=== PATIENT | male | born 1990 | race Caucasian/White ===

== ENCOUNTER 2018-11-28 13:58 | Emergency (ER) | payer OTHER ==
[2018-11-28 14:11] VITALS: BP 117/71
--- NOTE | 2018-11-28 14:48 | UC ---
Asthma HPI - HPI Summary HPI Summary: patient had URI 2 weeks ago and was using albuterol inhaler more, he is running out of med and worried he may still need it. no longer feels sick but does exp. occasional wheezing and cough at night. no fever - History of Current Complaint Chief Complaint: UCAsthma Stated Complaint: ASTHMA Time Seen by Provider: 11/28/18 14:38 Hx Obtained From: Patient Onset/Duration: Gradual Onset Timing: Intermittent Episode Lasting Pain Intensity: 0 Aggravating Factor(s): Exertion, Weather Change Alleviating Factor(s): Rest, Inhalers/Nebulizers Associated Signs and Symptoms: Positive: Negative - Allergy/Home Medications Allergies/Adverse Reactions: Allergies Allergy/AdvReac Type Severity Reaction Status Date / Time cefaclor [From [facility]] Allergy Unknown Verified 11/28/18 14:12 Reaction Details Home Medications: Home Medications Albuterol 2.5MG/3ML (0.083%)* [Ventolin 2.5 MG/3 ML NEB.JANA*] 2 puff 11/28/18 [ History] PMH/Surg Hx/FS Hx/Imm Hx Previously Healthy: Yes Respiratory History: Asthma - Surgical History Surgical History: Yes Surgery Procedure, Year, and Place: left ear issue - Family History Known Family History: Positive: None - Social History Occupation: Employed Full-time Lives: With Family Alcohol Use: Weekly Alcohol Amount: 3x's week Substance Use Type: None Smoking Status (MU): Light Every Day Tobacco Smoker Type: Cigarettes Amount Used/How Often: 1 ppw Length of Time of Smoking/Using Tobacco: 4 years Have You Smoked in the Last Year: Yes Household Exposure Type: Cigarettes Cessation Counseling: Patient Advised to Stop Review of Systems All Other Systems Reviewed And Are Negative: Yes Constitutional: Positive: Negative. Negative: Fever, Chills Respiratory: Positive: Other - asthma Cardiovascular: Positive: Negative Neurological: Positive: Negative. Negative: Headache Psychological: Positive: Negative Is Patient Immunocompromised?: No Physical Exam Triage Information Reviewed: Yes Appearance: Well-Appearing, No Pain Distress, Well-Nourished Vital Signs: Initial Vital Signs Temp 98.9 F 11/28/18 14:07 Pulse 92 11/28/18 14:07 Resp 16 11/28/18 14:07 BP 117/71 11/28/18 14:07 Pulse Ox 98 11/28/18 14:07 ENT Exam: Normal ENT: Positive: Normal ENT inspection, Pharynx normal Respiratory Exam: Normal Respiratory: Positive: Lungs clear. Negative: Wheezing Cardiovascular Exam: Normal Cardiovascular: Positive: RRR Neurological Exam: Normal Psychological Exam: Normal Skin Exam: Normal Asthma Course/Dx - Differential Dx/Diagnosis Differential Diagnosis/HQI/PQRI: Acute Asthma, Bronchitis, Pneumonia, Reactive Airway Disease Provider Diagnosis: Asthma Discharge ED - Sign-Out/Discharge Documenting (check all that apply): Patient Departure All imaging exams completed and their final reports reviewed: No Studies - Discharge Plan Condition: Good Disposition: HOME Prescriptions: Albuterol inh POWDER (NF) [Proair Respiclick] 2 puff INH QID #1 mdi Patient Education Materials: Asthma (ED) Referrals: No Primary Care Phys,NOPCP [Primary Care Provider] - Additional Instructions: use albuterol inhaler as directed drink plenty of fluids return if you experience difficulty breathing - Billing Disposition and Condition Condition: GOOD Disposition: Home
== END 2018-11-28 14:55 | disposition home or self-care (01) ==
LOC: UCEAST 13:58
DX: J45.909 Unspecified asthma, uncomplicated (principal); F17.210 Nicotine dependence, cigarettes, uncomplicated; Z88.1 Allergy status to other antibiotic agents
CPT/HCPCS: 99202; G0463

== ENCOUNTER 2018-12-22 16:02 | Emergency (ER) | payer OTHER ==
[2018-12-22 16:41] VITALS: BP 110/66
--- NOTE | 2018-12-22 18:01 | UC ---
Respiratory Complaint HPI - HPI Summary HPI Summary: 28 year old male with h/o asthma since child presents with need for refill of his albuterol inhaler. States on good days he takes this 5-10 times, about 4- 5 times a night and more on other days. Was on maintenance dose years ago, but due to no insurance was unable to fill. No complaints currenltly. has appt with new provider in 02/2019, states that was the soonest he could be seen - History of Current Complaint Chief Complaint: UCRespiratory Stated Complaint: ASTHMA ISSUE Time Seen by Provider: 12/22/18 17:49 Hx Obtained From: Patient Onset/Duration: Sudden Onset Severity Currently: None Pain Intensity: 0 Pain Scale Used: 0-10 Numeric Character: Cough: Nonproductive Aggravating Factors: Allergens, Deep Breaths, Recumbent Position Alleviating Factors: Bronchodilator Associated Signs And Symptoms: Positive: Dyspnea, Wheezing - Allergies/Home Medications Allergies/Adverse Reactions: Allergies Allergy/AdvReac Type Severity Reaction Status Date / Time cefaclor [From [facility]] Allergy Unknown Verified 12/22/18 16:41 Reaction Details PMH/Surg Hx/FS Hx/Imm Hx Previously Healthy: Yes - Surgical History Surgical History: Yes Surgery Procedure, Year, and Place: left ear issue - Family History Known Family History: Positive: None, Non-Contributory - Social History Alcohol Use: Weekly Alcohol Amount: 3x's week Substance Use Type: None Smoking Status (MU): Former Smoker Type: Cigarettes Amount Used/How Often: 1 ppw Length of Time of Smoking/Using Tobacco: 4 years Have You Smoked in the Last Year: Yes When Did the Patient Quit Smoking/Using Tobacco: 4 months ago Household Exposure Type: Cigarettes Review of Systems All Other Systems Reviewed And Are Negative: Yes Constitutional: Negative: Fever, Chills, Fatigue Respiratory: Positive: Shortness Of Breath, Cough Cardiovascular: Negative: Palpitations Is Patient Immunocompromised?: No Physical Exam Triage Information Reviewed: Yes Appearance: Well-Appearing, No Pain Distress, Well-Nourished Vital Signs: Initial Vital Signs Temp 98.7 F 12/22/18 16:36 Pulse 65 12/22/18 16:36 Resp 16 12/22/18 16:36 BP 110/66 12/22/18 16:36 Pulse Ox 97 12/22/18 16:36 Eyes: Positive: Conjunctiva Clear ENT: Positive: Pharynx normal, TMs normal Neck: Positive: Supple, Nontender, No Lymphadenopathy. Negative: Nuchal Rigidity, Enlarged Nodes @ Respiratory: Positive: Chest non-tender, No respiratory distress, No accessory muscle use, Wheezing - diffuse b/l lobes. Negative: Respiratory distress, Decreased breath sounds Cardiovascular: Positive: RRR, No Murmur Neurological: Positive: Alert Psychological Exam: Normal Skin Exam: Normal Respiratory Course/Dx - Course Course Of Treatment: moderate asthma - Albuterol as needed for rescue inhaler - Flovent called in- twice daily. - Go to ER with increased symptoms - [facility] Clinic- [facility] for appointment if needed - Call [facility] to be connected with a doctor who may have availability sooner then 02/2019. - Differential Dx/Diagnosis Differential Diagnosis/HQI/PQRI: Asthma Provider Diagnosis: Asthma, moderate Discharge ED - Sign-Out/Discharge Documenting (check all that apply): Patient Departure All imaging exams completed and their final reports reviewed: No Studies - Discharge Plan Condition: Good Disposition: HOME Prescriptions: Albuterol HFA INHALER* [Ventolin HFA Inhaler*] 1 - 2 puff INH Q4H PRN #1 mdi PRN Reason: shortness of breath, cough Budesonide/Formote 160/4.5(NF) [Symbicort 160/4.5 (NF)] 1 puff INH BID #1 mdi Patient Education Materials: Asthma (DC) Referrals: No Primary Care Phys,NOPCP [Primary Care Provider] - [facility] [Outside] Additional Instructions: - Albuterol as needed for rescue inhaler - Flovent called in- twice daily. - Go to ER with increased symptoms - [facility] Clinic- [facility] for appointment if needed - Call [facility] to be connected with a doctor who may have availability sooner then 02/2019. - Billing Disposition and Condition Condition: GOOD Disposition: Home
== END 2018-12-22 18:05 | disposition home or self-care (01) ==
LOC: UCEAST 16:02
DX: J45.40 Moderate persistent asthma, uncomplicated (principal); Z76.0 Encounter for issue of repeat prescription; Z88.1 Allergy status to other antibiotic agents; Z87.891 Personal history of nicotine dependence
CPT/HCPCS: 99212; G0463

== ENCOUNTER 2019-05-12 11:08 | Emergency (ER) | payer SELFPAY ==
--- NOTE | 2019-05-12 11:36 | UC ---
Respiratory Complaint HPI - HPI Summary HPI Summary: 28 yo male presents with complaints of asthma. He tells me that he has a long standing history of asthma that is usually controlled well with his albuterol inhaler and symbicort, but he has been having issues with his insurance and has not had his prescriptions in awhile. He notes that he inhaled some sawdust a few days ago and he has been having wheezing, cough, and feelings intermittently short of breath for the last 4-5 days since that time. Has been using his mother's nebulizer with good intermittent relief. He smokes marijuana. Denies fever, chills, sinus symptoms, sore throat, chest pain, abdominal pain, n/v. No recent travel. No exposure to known positive COVID. - History of Current Complaint Stated Complaint: ASTHMA Time Seen by Provider: 05/12/19 11:36 Hx Obtained From: Patient Onset/Duration: Gradual Onset Severity Initially: Mild Severity Currently: Mild Pain Intensity: 3 Pain Scale Used: 0-10 Numeric - Allergies/Home Medications Allergies/Adverse Reactions: Allergies Allergy/AdvReac Type Severity Reaction Status Date / Time cefaclor [From [facility]] Allergy Unknown Verified 12/22/18 16:41 Reaction Details Home Medications: Home Medications Albuterol 2.5MG/3ML (0.083%)* [Ventolin 2.5 MG/3 ML NEB.JANA*] 1 vial INH Q6HR PRN #90 neb.soln 05/12/19 [Rx] Albuterol HFA INHALER* [Ventolin HFA Inhaler*] 1 - 2 puff INH Q4H PRN #1 mdi [Rx] Budesonide/Formote 160/4.5(NF) [Symbicort 160/4.5 (NF)] 1 puff INH BID #1 mdi [Rx] predniSONE 20 mg TAB [Deltasone 20 MG TAB*] 40 mg PO DAILY #10 tab 05/12/19 [Rx] PMH/Surg Hx/FS Hx/Imm Hx Respiratory History: Asthma - Surgical History Surgical History: Yes Surgery Procedure, Year, and Place: left ear issue - Family History Known Family History: Positive: None, Non-Contributory - Social History Lives: With Family Alcohol Use: Weekly Alcohol Amount: 3x's week Substance Use Type: None Smoking Status (MU): Former Smoker Type: Cigarettes Amount Used/How Often: 1 ppw Length of Time of Smoking/Using Tobacco: 4 years Have You Smoked in the Last Year: Yes When Did the Patient Quit Smoking/Using Tobacco: 4 months ago Household Exposure Type: Cigarettes Review of Systems All Other Systems Reviewed And Are Negative: No Constitutional: Positive: Negative Skin: Positive: Negative Eyes: Positive: Negative ENT: Positive: Negative Respiratory: Positive: Shortness Of Breath, Cough Cardiovascular: Positive: Negative Gastrointestinal: Positive: Negative Neurological/Mental Status: Positive: Negative Psychological: Positive: Negative Physical Exam - Summary Physical Exam Summary: GENERAL: NAD. WDWN. No pain distress. SKIN: No rashes, sores, lesions, or open wounds. HEENT: Head: AT/NC Eyes: Conjunctiva clear without inflammation or discharge. Ears: Hearing grossly normal. TMs intact, no bulging, erythema, or edema. Nose: Nasal mucosa pink and moist. NTTP maxillary and frontal sinus. Throat: Posterior oropharynx without exudates, erythema, or tonsillar enlargement. Uvula midline. NECK: Supple. Nontender. No lymphadenopathy. CHEST: Mild wheezing throughout. No r/r. No accessory muscle use. Breathing comfortably and in no distress. CV: RRR. Pulses intact. Cap refill <2seconds NEURO: Alert. PSYCH: Age appropriate behavior. Triage Information Reviewed: Yes Vital Signs: Vital Signs: Temp Pulse Resp BP Pulse Ox 98.5 F 88 20 113/81 96 05/12/19 11:48 05/12/19 11:48 05/12/19 11:48 05/12/19 11:48 05/12/19 11:48 Vital Signs Reviewed: Yes Respiratory Course/Dx - Course Course Of Treatment: Discussed testing for COVID today, but pt declined and states that this is his usual asthma. Currently does not have insurance. Will rx for albuterol inhaler, albuterol nebulizer solution, symbicort, and 5 days of prednisone. - Differential Dx/Diagnosis Provider Diagnosis: Asthma exacerbation Discharge ED - Sign-Out/Discharge Documenting (check all that apply): Patient Departure All imaging exams completed and their final reports reviewed: No Studies - Discharge Plan Condition: Stable Disposition: HOME Prescriptions: Albuterol 2.5MG/3ML (0.083%)* [Ventolin 2.5 MG/3 ML NEB.JANA*] 1 vial INH Q6HR PRN #90 neb.soln PRN Reason: Sob/Wheezing Albuterol HFA INHALER* [Ventolin HFA Inhaler*] 1 - 2 puff INH Q4H PRN #1 mdi PRN Reason: shortness of breath, cough Budesonide/Formote 160/4.5(NF) [Symbicort 160/4.5 (NF)] 1 puff INH BID #1 mdi predniSONE 20 mg TAB [Deltasone 20 MG TAB*] 40 mg PO DAILY #10 tab Patient Education Materials: Asthma (ED) Referrals: No Primary Care Phys,NOPCP [Primary Care Provider] - Additional Instructions: Start the symbicort as directed AFTER finishing the oral prednisone. - Billing Disposition and Condition Condition: STABLE Disposition: Home
[2019-05-12 11:59] VITALS: BP 113/81
== END 2019-05-12 12:25 | disposition home or self-care (01) ==
LOC: UCEAST 11:08
DX: J45.901 Unspecified asthma with (acute) exacerbation (principal); Z88.1 Allergy status to other antibiotic agents; Z87.891 Personal history of nicotine dependence
CPT/HCPCS: 99211; G0463